=== PATIENT | male | born 1955 | race Caucasian/White ===

== ENCOUNTER 2020-12-23 02:47 | Emergency (ER) | payer BC, MEDICARE ==
[2020-12-23] MEDS ORDERED: Lidocaine 1% with EPINEPHrine 1:100,000 10 ML MDV INJECT ONE (03:00)
--- NOTE | 2020-12-23 03:04 | EDM.PDOC ---
ED HPI GENERAL MEDICAL PROBLEM - General Chief Complaint: Laceration Stated Complaint: HEAD LAC Time Seen by Provider: 12/23/20 02:56 Source of Information: Reports: Patient History Limitations: Reports: No Limitations - History of Present Illness INITIAL COMMENTS - FREE TEXT/NARRATIVE: The patient presents with a laceration to his head. He is staying in a [employer] and he was walking down some stairs and tripped and hit his head on the island in the kitchen. He had no LOC. He does have a 6cm laceration to the right parietal region. He has no headache now. He is on an aspirin but no other blood thinners. He has no neck pain, chest pain, abdominal pain, numbness or weakness. His tetanus is up to date. Onset: Sudden Duration: Minutes: Location: Reports: Head Improves with: Reports: None Worsens with: Reports: None Associated Symptoms: Reports: No Other Symptoms Right Head Pain Score (Numeric/FACES): 2 - Related Data Allergies Allergy/AdvReac Type Severity Reaction Status Date / Time No Known Allergies Allergy Verified 12/23/20 02:55 Home Meds: Home Meds Aspirin 81 mg PO DAILY 12/23/20 [History] Pravastatin [Pravachol] 20 mg PO DAILY 12/23/20 [History] lisinopriL [Lisinopril] 10 mg PO DAILY 12/23/20 [History] ED ROS GENERAL - Review of Systems Review Of Systems: See Below Constitutional: Reports: No Symptoms HEENT: Reports: No Symptoms Respiratory: Reports: No Symptoms Cardiovascular: Reports: No Symptoms Endocrine: Reports: No Symptoms GI/Abdominal: Reports: No Symptoms : Reports: No Symptoms Musculoskeletal: Reports: No Symptoms Skin: Reports: Other (Laceration to the right parietal region) ED EXAM, SKIN/RASH Exam: See Below Exam Limited By: No Limitations General Appearance: Alert, No Apparent Distress Ears: Normal External Exam Nose: Normal Inspection Head: Other (6cm laceration to the right parietal region) Neck: Normal Inspection, Supple, Non-Tender Respiratory/Chest: No Respiratory Distress, Lungs Clear, Normal Breath Sounds Cardiovascular: Regular Rate, Rhythm, No Edema, No Murmur GI/Abdominal: Soft, Non-Tender, No Organomegaly, No Mass Back Exam: Normal Inspection Extremities: Normal Inspection ED SKIN PROCEDURES - Laceration/Wound Repair Right Head Appearance: Subcutaneous, Irregular, Clean Anesthetic Type: Local Local Anesthesia - Lidocaine (Xylocaine): 1% with EPI Skin Prep: Saline Exploration/Debridement/Repair: Wound Explored, In a Bloodless Field, Explored to Base Closed with: Sutures Lac/Wound length In cm: 6 Suture Size: 4-0 # of Sutures: 12 Suture Type: Nylon, Interrupted, Simple Tetanus Status Addressed: Yes Complications: No Course - Vital Signs Last Recorded V/S: Last Vital Signs Temp 97 F 12/23/20 03:00 Pulse 83 12/23/20 03:00 Resp 16 12/23/20 03:00 BP 133/86 12/23/20 03:00 Pulse Ox 95 12/23/20 03:00 - Orders/Labs/Meds Meds: Medications Discontinued Medications Generic Name Dose Route Start Last Admin Trade Name Rikki PRN Reason Stop Dose Admin Lidocaine/Epinephrine 10 ml 12/23/20 03:00 12/23/20 03:12 Lidocaine 1% With Epinephrine 1:100,000 10 Ml Mdv INJECT 12/23/20 03:01 10 ml ONETIME ONE Administration - Re-Assessments/Exams Free Text/Narrative Re-Assessment/Exam: 12/23/20 03:37 Departure - Departure Time of Disposition: 03:40 Disposition: Home, Self-Care 01 Condition: Good Clinical Impression: Fall Qualifiers: Encounter type: initial encounter Qualified Code(s): W19.XXXA - Unspecified fall, initial encounter Scalp laceration Qualifiers: Encounter type: initial encounter Qualified Code(s): S01.01XA - Laceration without foreign body of scalp, initial encounter - Discharge Information *PRESCRIPTION DRUG MONITORING PROGRAM REVIEWED*: Not Applicable *COPY OF PRESCRIPTION DRUG MONITORING REPORT IN PATIENT MELISSA: Not Applicable Referrals: PCP,Not In Area [Primary Care Provider] - Forms: ED Department Discharge Additional Instructions: Clean the wound with warm soapy water 2 times per day and apply antibiotic ointment after. The sutures can be removed within a week. Look for any signs of infection such as redness, swelling, pain or discharge. If you see any of these signs please see a provider. You may need oral antibiotics. Sepsis Event Note (ED) - Focused Exam Vital Signs: Vital Signs Temp Pulse Resp BP Pulse Ox 12/23/20 03:00 97 F 83 16 133/86 95
== END 2020-12-23 03:50 | disposition home or self-care (01) ==
LOC: JD.ED 02:47
DX: S01.01XA Laceration without foreign body of scalp, initial encounter (principal); Z79.82 Long term (current) use of aspirin; Z79.899 Other long term (current) drug therapy; W01.198A Fall on same level from slipping, tripping and stumbling with subsequent striking against other object, initial encounter; Y93.01 Activity, walking, marching and hiking; Y92.000 Kitchen of unspecified non-institutional (private) residence as the place of occurrence of the external cause
CPT/HCPCS: 12002; 99282-25; 99283